=== PATIENT | female | born 1970 | race African-American/Black ===

== ENCOUNTER 2020-11-20 17:42 | Emergency (ER) | payer OTHER ==
[~2020-11-20] VITALS: Ht 157.5 cm; Wt 88.9 kg
[2020-11-20 19:03] LABS: ABSOLUTE NEUTROPHILS 9.2 thou/uL (1.4-8.2); BASOPHILS 0.7 % (0.0-2.0); EOSINOPHILS 1.1 % (0.0-3.0); HEMATOCRIT 38.1 % (37.0-47.0); HEMOGLOBIN 12.8 gm/dL (12.0-15.0); LYMPHOCYTES 22.5 % (24.0-44.0); MCH 29.7 pg (26.0-34.0); MCHC 33.5 g/dL (28.0-37.0); MCV 88.7 fL (80.0-100.0); MONOCYTES 4.7 % (1.0-8.0); PLATELET COUNT 408 thou/uL (150-400); WBC 12.9 thou/uL (4.0-11.0)
[2020-11-20 19:14] LABS: ANION GAP 11 mmol/L (7-16); BUN 9 mg/dL (7-18); CALCIUM 10.1 mg/dL (8.5-10.1); CHLORIDE 101 mmol/L (98-107); CO2 25 mmol/L (21-32); CREATININE 0.8 mg/dL (0.6-1.0); GLUCOSE 117 mg/dL (74-106); POTASSIUM 3.9 mmol/L (3.5-5.1); SODIUM 137 mmol/L (136-145)
[2020-11-20 19:24] LABS: SGOT 14 U/L (15-37); SGPT 17 U/L (14-59); TOTAL BILIRUBIN 0.3 mg/dL (0.2-1.0); TOTAL PROTEIN 8.4 g/dL (6.4-8.2); TROPONIN-I <0.06 ng/mL (<0.06)
[2020-11-20] MEDS ORDERED: VISTARIL 25 MG25 M1 PO (21:12)
[2020-11-20 21:32] VITALS: BP 120/71
--- NOTE | 2020-11-21 09:35 | EKG ---
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1970 Requested By: Humphrey Huerta Order Number: [id number] MD: Carlito Ramsey Measurements Intervals [place] Rate: 122 P: 74 IA: 174 QRS: 11 QRSD: 86 T: -13 QT: 313 QTc: 446 Interpretive Statements Sinus tachycardia Low voltage, precordial leads Borderline T abnormalities, inferior leads No previous ECG available for comparison Electronically Signed On 11-21-2020 9:35:18 CDT by Carlito Ramsey [email or web address] <ELECTRONICALLY SIGNED> By: Carltio Ramsey MD, [facility] 11/21/20 0935 1751 1751 Carlito Ramsey MD, FACC /EPI
== END 2020-11-20 21:58 | disposition home or self-care (01) ==
LOC: ER 17:42
PROVIDERS: Emergency Medicine
DX: R06.00 Dyspnea, unspecified (principal)

== ENCOUNTER 2020-11-23 17:22 | Emergency (ER) | payer OTHER ==
[~2020-11-23] VITALS: Ht 157.5 cm; Wt 88.9 kg
[~2020-11-23 17:22] MED LIST: VISTARIL 25 MG25 M1 PO
[2020-11-23 18:21] LABS: ABSOLUTE NEUTROPHILS 8.5 thou/uL (1.4-8.2); BASOPHILS 0.6 % (0.0-2.0); EOSINOPHILS 0.7 % (0.0-3.0); HEMOGLOBIN 12.2 gm/dL (12.0-15.0); LYMPHOCYTES 16.7 % (24.0-44.0); MCH 29.1 pg (26.0-34.0); MCV 88.2 fL (80.0-100.0); MONOCYTES 4.6 % (1.0-8.0); PLATELET COUNT 345 thou/uL (150-400); POLYS 77.4 % (36.0-66.0); RDW 15.7 % (10.5-14.5)
[2020-11-23 18:36] LABS: CALCIUM 9.9 mg/dL (8.5-10.1); CREATININE 0.7 mg/dL (0.6-1.0); POTASSIUM 3.8 mmol/L (3.5-5.1)
[2020-11-23 19:56] VITALS: BP 148/94
--- NOTE | 2020-11-24 07:05 | EKG ---
[place] [address] [facility] [place] [address] ELECTROCARDIOGRAM REPORT Name: DEVIN ROQUE [facility] [id number] Admission: 11/23/20 Attend Phys: Discharge: 11/23/20 Date of : 66 Report #: [id number] 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1970 Requested By: Magnus Yao Order Number: [id number] MD: Sean Parada Measurements Intervals [place] Rate: 112 P: 64 NE: 191 QRS: 2 QRSD: 89 T: -15 QT: 323 QTc: 441 Interpretive Statements Sinus tachycardia Low voltage, precordial leads Borderline T abnormalities, diffuse leads Compared to ECG 11/20/2020 17:51:51 No significant changes Electronically Signed On 11-24-2020 7:05:05 CDT by Sean Parada [email or web address] <ELECTRONICALLY SIGNED> By: Sean Parada MD, [facility] 11/24/20 07 34 173 Sean Parada MD, FACC /EPI
== END 2020-11-23 19:58 | disposition home or self-care (01) ==
LOC: ER 17:22
PROVIDERS: Nurse Practitioner
DX: F41.9 Anxiety disorder, unspecified (principal); R42 Dizziness and giddiness

== ENCOUNTER 2020-11-27 20:55 | Emergency (ER) | payer OTHER ==
[~2020-11-27] VITALS: Ht 157.5 cm; Wt 83.9 kg
[2020-11-27] MEDS ORDERED: PAXIL20 MG PO (21:10)
[2020-11-27] MEDS ORDERED: XANAX 0.25 MG0.25 MG PO (21:11)
[2020-11-27 21:13] LABS: ABSOLUTE NEUTROPHILS 8.9 thou/uL (1.4-8.2); BASOPHILS 0.6 % (0.0-2.0); EOSINOPHILS 1.2 % (0.0-3.0); HEMATOCRIT 38.3 % (37.0-47.0); HEMOGLOBIN 12.6 gm/dL (12.0-15.0); MCH 29.3 pg (26.0-34.0); MCV 88.7 fL (80.0-100.0); MONOCYTES 8.8 % (1.0-8.0); PLATELET COUNT 378 thou/uL (150-400); POLYS 72.4 % (36.0-66.0); RBC 4.32 mil/uL (4.20-5.00); RDW 15.4 % (10.5-14.5); WBC 12.4 thou/uL (4.0-11.0)
[2020-11-27 21:32] LABS: CALCIUM 9.5 mg/dL (8.5-10.1); CREATININE 0.9 mg/dL (0.6-1.0); POTASSIUM 3.6 mmol/L (3.5-5.1)
[2020-11-27 21:40] LABS: ALBUMIN 3.7 g/dL (3.4-5.0); TOTAL BILIRUBIN 0.2 mg/dL (0.2-1.0); TOTAL PROTEIN 8.5 g/dL (6.4-8.2)
[2020-11-27 22:25] VITALS: BP 168/97
--- NOTE | 2020-11-28 05:52 | EKG ---
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1970 Requested By: Ziggy Kang Order Number: [id number] MD: Sean Parada Measurements Intervals [place] Rate: 102 P: 33 DE: 183 QRS: -7 QRSD: 106 T: -3 QT: 337 QTc: 439 Interpretive Statements Sinus tachycardia Probable left atrial enlargement Low voltage, precordial leads Borderline repolarization abnormality Baseline wander in lead(s) I,II,III,aVR,aVL,V1,V2,V3,V4,V5,V6 Compared to ECG 11/23/2020 17:35:08 T-wave abnormality no longer present Electronically Signed On 11-28-2020 5:52:04 CDT by Sean Parada [email or web address] <ELECTRONICALLY SIGNED> By: Sean Parada MD, FACC 11/28/20 0552 10 10 Sean Parada MD, FAC /EPI
== END 2020-11-27 22:26 | disposition home or self-care (01) ==
LOC: ER 20:55
PROVIDERS: Emergency Medicine
DX: R55 Syncope and collapse (principal); F41.9 Anxiety disorder, unspecified; Z79.899 Other long term (current) drug therapy